=== PATIENT | female | born 1940 | race Caucasian/White ===

== ENCOUNTER 2019-10-30 11:57 | Day surgery (SDC) | payer MEDICARE, OTHER ==
--- NOTE | 2019-10-30 15:30 | MRI ---
EXAM: MRI lumbar spine without contrast HISTORY: Lumbar radiculopathy COMPARISON: None TECHNIQUE: Multiple planar multisequence MR images were obtained of the lumbar spine without contrast . FINDINGS: The vertebral bodies and intervertebral discs demonstrate normal height and alignment without fractur e or subluxation. Generalized disc desiccation is seen. The prevertebral and paraspinal soft tissues are unremarkable. No marrow signal abnormality is present. The conus medullaris terminates normally at L1. T12/L1: No significant posterior bulge or protrusion. Mild bilateral posterior facet arthrosis. No central canal stenosis. No neural foraminal stenosis L1/2: No significant posterior bulge or protrusion. Mild bilateral posterior facet arthrosis. No ce ntral canal stenosis. No neural foraminal stenosis L2/3: A moderate disc osteophyte complex is seen. Moderate bilateral posterior facet arthrosis. Mil d central canal stenosis. Moderate bilateral neural foraminal stenosis L3/4: A moderate disc osteophyte complex is seen. Moderate to severe bilateral posterior facet arthr osis. Moderate central canal stenosis. Moderate bilateral neural foraminal stenosis L4/5: A moderate discussed by complex is seen. Moderate to severe posterior facet arthrosis. Modera te central canal stenosis. Moderate bilateral neural foraminal stenosis L5/S1: A moderate disc osteophyte complex is seen. Moderate bilateral posterior facet arthrosis. No central canal stenosis. Moderate bilateral neural foraminal stenosis IMPRESSION: Degenerative changes of the lumbar spine as above.
== END 2019-10-30 15:50 | disposition home or self-care (01) ==
LOC: SDC/OP 11:57
PROVIDERS: ATTEND Physician Assistant Medical
DX: M54.16 Radiculopathy, lumbar region (principal); M48.061 Spinal stenosis, lumbar region without neurogenic claudication; F17.210 Nicotine dependence, cigarettes, uncomplicated; E03.9 Hypothyroidism, unspecified; Z79.82 Long term (current) use of aspirin; Z79.84 Long term (current) use of oral hypoglycemic drugs; Z79.899 Other long term (current) drug therapy; Z88.0 Allergy status to penicillin
CPT/HCPCS: 72148

== ENCOUNTER 2020-06-09 05:37 | Outpatient (CLI) | payer MEDICARE, OTHER | END 2020-06-09 05:38 | disposition home or self-care (01) | LOC: LABBT 05:37 | PROVIDERS: ATTEND Orthopaedic Surgery | DX: Z01.810 Encounter for preprocedural cardiovascular examination (principal); M16.11 Unilateral primary osteoarthritis, right hip | CPT/HCPCS: 93005; 93010 ==

== ENCOUNTER 2020-06-13 05:33 | Inpatient (IN) | payer MEDICARE ==
[2020-06-07 10:24] VITALS: BMI 33.3
--- NOTE | 2020-06-09 12:52 | HP ---
HISTORY OF PRESENT ILLNESS: The patient is a 79-year-old female with one year history of progressive right hip pain without injury. She has right hip pain radiating into her thigh, which has progressed despite restriction of activities and use of a walker. She has also had back pain. She has been seen by Dr. Seymour and given injections in her back and hip. Injections in her back did not give her much relief, but she did have excellent relief from injection in her hip for approximately 1 month. She was seen by Dr. Lundberg, who did not feel that she had operative back problem and thought her problem was from her hip and was referred to me. She has had progressive problems by restriction of activities and the pain is now interfering with day-to-day activities including walking, getting dressed, and sleeping. PAST MEDICAL HISTORY: The patient has a history of hypertension, diabetes, thyroid replacement, chronic pain. CURRENT MEDICATIONS: Include: 1. Lyrica. 2. Potassium. 3. Simvastatin. 4. Low-dose aspirin. 5. Metformin. 6. Amlodipine. 7. Losartan. 8. Multivitamins. 9. Ibuprofen. 10. Levothyroxine. 11. Lasix. ALLERGIC: To penicillin, which causes a rash. FAMILY HISTORY: Otherwise, unremarkable. SOCIAL HISTORY: Otherwise, unremarkable. REVIEW OF SYSTEMS: Otherwise, unremarkable. PHYSICAL EXAMINATION: GENERAL: Reveals a healthy elderly female. HEENT: Unremarkable. NECK: Supple. CHEST: Clear. HEART: Regular rate and rhythm. ABDOMEN: Soft, nontender. PELVIC: Deferred. RECTAL: Deferred. BREAST: Deferred. EXTREMITIES: Pertinent findings compared to the right hip. Her leg lengths are equal. There is tenderness over the greater trochanter and anterior right hip. There is a right antalgic gait with a walker. There is decreased range of motion of right hip and groin pain with internal rotation. There is good capillary refill. I could not palpate distal pulses. NEUROLOGIC: Otherwise intact. DIAGNOSTIC STUDIES: X-rays of the right hip reveal severe DJD with minimal joint space remaining and vascular calcifications. MRI scan of the lumbar spine reveals degenerative changes and moderate foraminal stenosis, but no major nerve root compression. IMPRESSION: 1. Degenerative arthritis, right hip. 2. Hypertension. 3. Type 2 diabetes. 4. Degenerative arthritis, lumbar spine. PLAN: The patient has been seen in preoperative surgery by Dr. López. I think she is a candidate for right total hip replacement. The nature of the surgery, length of recovery, and potential complications such as infection, loss of motion, incomplete relief, neurovascular injury, thromboembolic phenomena, leg length discrepancy, possible transfusion, need for revision have been discussed in detail. Job ID: [id number]
[2020-06-09 14:12] LABS: #Eosinphils 0.1 thou/uL (0.0-0.7); #Lymphocytes 2.6 thou/uL (1.20-3.40); #Monocytes 0.8 thou/uL (0.11-0.59); #Neutrophils 4.4 thou/uL (1.40-6.50); %Basophils 0.5 % (0.0-1.0); %Eosinophils 1.6 % (0.0-10.0); %Lymphocytes 32.7 % (21.0-51.0); %Neutrophils 55.1 % (42.0-75.0); Hemoglobin 13.6 g/dL (12.0-16.0); Mean Corpuscular HGB CONC 32.6 g/dL (32.0-36.0); Mean Corpuscular Hemoglobin 30.5 pg (27.0-31.0); Mean Corpuscular Volume 93.6 fL (78.0-98.0); Mean Platelet Volume 8.1 fL (7.4-10.4); Platelet Count 286 thou/uL (130-400); RBC Distribution Width 12.7 % (11.5-14.5); Red Blood Cell (RBC) Count 4.47 mill/uL (4.20-5.40)
[2020-06-09 14:16] LABS: Prothrombin Time 12.7 sec (12.0-14.7)
[2020-06-09 14:24] LABS: Bacteria/HPF None Seen HPF (None Seen); Bilirubin Negative (Negative); Blood, Urine Negative (Negative); Clarity Clear (Clear); Glucose, Urine (Dipstick) Normal (Negative); Ketone, Urine Negative (Negative); Leukocyte Negative Leu/uL (Negative); Nitrite Negative (Negative); Protein, Urine (Dipstick) 10 mg/dL (Neg-Trace); RBC/HPF 0-3 HPF (0-3); Specific Gravity, Urine 1.015 (1.002-1.036); Squamous Epithelial 0-3 HPF (0-3); Urobilinogen Normal mg/dL (Less than 2); WBC/HPF 0-3 HPF (0-3)
[2020-06-09 14:28] LABS: Anion Gap 12 mmol/L (10-20); BUN (Urea Nitrogen) 12 mg/dL (9.8-20.1); Calc. Creatinine Clearance 0 mL/min (70-130); Calcium 9.5 mg/dL (7.8-10.44); Carbon Dioxide 29 mmol/L (23-31); Chloride 100 mmol/L (98-107); Estimated GFR-MDRD 70; Glucose 120 mg/dL (83-110); Potassium 4.1 mmol/L (3.5-5.1); Sodium 137 mmol/L (136-145)
[2020-06-10 12:47] LABS: SARS-CoV-2 MS2 Positive; SARS-CoV-2 N Gene Negative; SARS-CoV-2 S Gene Negative; SARS-CoV-2 orf1ab Negative
[2020-06-13] MEDS ORDERED: Vancomycin 1.5 GRAM/300 ML BAG ONE (06:01)
[2020-06-13] MEDS ORDERED: Fentanyl 100 MCG/2 ML VIAL ONE ×2 (06:01→06:37)
[2020-06-13] MEDS ORDERED: Sodium Chloride 0.9% 100 ML ONE (06:01)
[2020-06-13] MEDS ORDERED: Levofloxacin 500 mg/D5W 100 ml Premix Bag ONE (06:01)
[2020-06-13] MEDS ORDERED: Tranexamic Acid 1,000 MG/10 ML VIAL ONE ×2 (06:01→09:11)
[2020-06-13] MEDS ORDERED: Midazolam HCl 2 mg/2 ml Vial ONE (06:37)
[2020-06-13] MEDS ORDERED: Acetaminophen 500 MG TAB PO PRN (07:50)
[2020-06-13] MEDS ORDERED: traMADol HCl 50 MG TAB PO PRN ×3 (08:00→10:54)
[2020-06-13] MEDS ORDERED: HYDROcodone/Acetaminophen 5/325 mg Tablet PO PRN ×2 (08:00)
[2020-06-13] MEDS ORDERED: Promethazine HCl 25 MG/ML VIAL IM PRN (08:00)
[2020-06-13] MEDS ORDERED: Naloxone HCl 0.4 mg/ml Vial IVP PRN (08:00)
[2020-06-13] MEDS ORDERED: diphenhydrAMINE 25 MG CAP PO PRN ×2 (08:00→10:54)
[2020-06-13] MEDS ORDERED: diphenhydrAMINE 50 MG/ML VIAL IM PRN (08:00)
[2020-06-13] MEDS ORDERED: Naloxone HCl 0.4 mg/ml Vial IV PRN (08:00)
[2020-06-13] MEDS ORDERED: Hydrocerin (Eucerin) Cream 120 gm Jar TOP PRN (08:00)
[2020-06-13] MEDS ORDERED: diphenhydrAMINE 50 MG/ML VIAL IVP PRN (08:00)
[2020-06-13] MEDS ORDERED: Ondansetron PF 4 MG/2 ML Vial IVP PRN ×2 (08:00→10:54)
[2020-06-13] MEDS ORDERED: Promethazine HCl 25 MG SUPP PR PRN (08:00)
[2020-06-13] MEDS ORDERED: Zolpidem Tartrate 5 MG TAB PO PRN ×2 (08:00→10:54)
[2020-06-13] MEDS ORDERED: Bupivacaine/Epinephrine 0.25% 30 ML VIAL ONE (08:34)
[2020-06-13] MEDS ORDERED: Tranexamic Acid 1,000 MG in Sodium Chloride 0.9% 100 ML IVPB SCH ×2 (09:15→10:54)
--- NOTE | 2020-06-13 09:44 | OP ---
DATE OF PROCEDURE: 06/13/2020 PROJECTION CAMERA OPERATOR: Diana Whalen PA-C ANESTHESIA: General plus epidural. PREOPERATIVE DIAGNOSIS: Degenerative arthritis, right hip. POSTOPERATIVE DIAGNOSIS: Degenerative arthritis, right hip. PROCEDURE PERFORMED: Right total hip replacement with uncemented Misael Trident II Tritanium acetabular component 54 mm with X3 polyethylene insert and uncemented [place] Accolade II femoral stem size 3, 132-degree neck angle with 36 mm standard neck length metal head. DESCRIPTION OF PROCEDURE: After satisfactory anesthesia was induced in supine position, sequential compression device was placed on the nonoperative leg throughout the procedure. The patient was placed in lateral decubitus position and this position was held with hip positioning device. The patient's right hip was then prepped and draped in a routine manner. The hip was approached through a lateral curvilinear incision, centered over the greater trochanter, carried down through the subcutaneous tissues, and bleeding points were controlled with Bovie cautery. IT band and gluteal fascia were split in line with skin incision. A direct lateral approach to the hip joint was accomplished by dividing the anterior third of the gluteus medius and minimus tendons with a Bovie cautery, reflecting this is a single flap anteriorly and medially along with the vastus lateralis. Anterior capsulectomy was performed. The hip was dislocated anteriorly. There was marked degenerative arthritis of the hip with large areas of exposed bone. The femoral neck was osteotomized with an oscillating saw using a trial prosthesis as a guide. The acetabulum was exposed and cleaned of all soft tissue and debris and reamed in sequence by 54 mm down to bleeding subchondral bone. It was felt that a 54 mm Trident Tritanium outer shell could be placed in a press-fit fashion. The permanent component was then hammered in position. There was good fit and stability of the component, and the permanent X3 polyethylene liner was inserted. The femur was exposed and opened with a box osteotome and then rasped in sequence to accept #3 Accolade II femoral rasp. The 132-degree angle trunnion was placed on the rasp and trial reduction with a 36 mm standard neck length head gave appropriate size, fit, and stability and maintenance of leg length. The hip was again dislocated anteriorly, and the trial components were removed. The permanent #3 Accolade II femoral stem was then hammered in position. There was again good fit and stability of the component. The permanent 36 mm metal head standard neck length was placed on the trunnion. The hip again reduced and found to be stable. The hip was copiously irrigated with pulsatile lavage. The abductors were repaired with interrupted #2 Vicryl. IT band and gluteal fascia were closed with interrupted #2 Vicryl and a running #2 Quill. Subcutaneous tissues were closed with running 0 Quill suture, and the skin was closed with a running subcuticular 3-0 Monoderm and SurgiSeal skin adhesive. Sterile dressing was applied. The patient turned to supine position, and a pillow placed in her legs. Sequential compression device was applied to the operative leg, and she was awakened and taken to the recovery room in stable condition. There were no apparent intraoperative complications. The estimated blood loss was 250 mL. Job ID: [id number]
[2020-06-13] MEDS ORDERED: HYDROcodone/Acetaminophen 10/325 mg Tablet PO PRN ×2 (10:54)
[2020-06-13] MEDS ORDERED: Amlodipine 10 MG TAB PO SCH (10:54)
[2020-06-13] MEDS ORDERED: Acetaminophen 325 MG TAB PO PRN (10:54)
[2020-06-13] MEDS ORDERED: Aspirin 81 mg Enteric Coated Tablet PO SCH ×2 (10:54→11:00)
[2020-06-13] MEDS ORDERED: Promethazine HCl 25 MG/ML VIAL SLOW IVP PRN (10:54)
[2020-06-13] MEDS ORDERED: Ferrous Gluconate 324 MG TAB PO SCH ×2 (10:54→11:15)
[2020-06-13] MEDS ORDERED: Fentanyl 100 MCG/2 ML VIAL SLOW IVP PRN (10:54)
[2020-06-13] MEDS ORDERED: Amlodipine 5 MG TAB PO SCH (11:00)
[2020-06-13] MEDS ORDERED: Multivitamin W/ Minerals 1 TAB PO SCH (11:15)
[2020-06-13] MEDS ORDERED: metFORMIN 500 MG TAB PO SCH (11:15)
[2020-06-13] MEDS ORDERED: Senokot S 8.6-50 MG TAB PO SCH (11:30)
[2020-06-13] MEDS ORDERED: Potassium Chloride 20 MEQ TAB PO SCH (11:30)
--- NOTE | 2020-06-13 11:43 | RAD ---
RIGHT HIP 2 VIEWS: Date: 06/13/2020 HISTORY: Postop right hip arthroplasty. FINDINGS/IMPRESSION: Comparison made with exam of 09/21/2019. Interval recent postop changes of right hip arthroplasty are seen in good position and alignment. Sof t tissue air is present. Calcified uterine fibroid is again seen. POS: [facility]
[2020-06-13] MEDS ORDERED: Dexamethasone 20 MG/5 ML VIAL ONE (12:21)
[2020-06-13] MEDS ORDERED: Ondansetron PF 4 MG/2 ML Vial ONE (12:21)
[2020-06-13] MEDS ORDERED: PHENYLEPHRINE-NS 100 MCG/ML 10 ML SYRINGE ONE (12:21)
[2020-06-13] MEDS ORDERED: Lidocaine 1.5% w/Epi 1:200K 30 ML VIAL (Epid Use) ONE (12:21)
[2020-06-13] MEDS ORDERED: Rocuronium Bromide 10 MG/ML (10ML VIAL) ONE (12:21)
[2020-06-13] MEDS ORDERED: Ketorolac Tromethamine 30 MG/ML VIAL ONE (12:21)
[2020-06-13] MEDS ORDERED: PROPOFOL 200 MG/20 ML VIAL ONE (12:21)
[2020-06-13] MEDS ORDERED: Glycopyrrolate 0.2 MG/ML 5 ML SYRINGE ONE (12:21)
[2020-06-13] MEDS: Ketorolac Tromethamine 30 MG/ML VIAL IVP SCH ×3 (14:17→23:20)
[2020-06-13] MEDS: Sodium Chloride 0.9% 1,000 ML IV SCH ×2 (15:13→20:06)
[2020-06-13] MEDS ORDERED: Dextrose 5% in Water 1,000 ML IV PRN (15:21)
[2020-06-13] MEDS ORDERED: Dextrose 50% Abboject 50 ML SYRINGE SLOW IVP PRN (15:21)
--- NOTE | 2020-06-13 15:24 | PDOC.HOSPP ---
- Subjective Encounter Date: 06/13/20 Encounter Time: 15:22 Subjective: Patient seen and examined. No new complaints. Patient is admitted for right hip arthroplasty for degenerative joint disease of hip Patient has no new complaints at this point - Objective Vital Signs & Weight: Vital Signs (12 hours) Temp Pulse Resp BP Pulse Ox 06/13/20 10:54 97.1 F L 54 L 16 116/54 L 98 Weight Weight 199 lb 15.348 oz Result Diagrams: 06/09/20 09:50 06/09/20 09:50 Radiology Reviewed by me: Yes Hospitalist ROS - Review of Systems Eyes: denies: pain, vision change, conjunctivae inflammation, eyelid inflammation, redness, other ENT: denies: ear pain, ear discharge, nose pain, nose discharge, nose congestion , mouth pain, mouth swelling, throat pain, throat swelling, other Respiratory: denies: cough, dry, shortness of breath, hemoptysis, SOB with excertion, pleuritic pain, sputum, wheezing, other Cardiovascular: denies: chest pain, palpitations, orthopnea, paroxysmal noc. dyspnea, edema, light headedness, other Gastrointestinal: denies: nausea, vomiting, abdominal pain, diarrhea, constipation, melena, hematochezia, other Genitourinary: denies: dysuria, frequency, incontinence, hematuria, retention, other Musculoskeletal: denies: neck pain, shoulder pain, arm pain, back pain, hand pain, leg pain, foot pain, other - Medication Medications: Active Medications Generic Name Dose Route Start Last Admin Trade Name Freq PRN Reason Stop Dose Admin Sodium Chloride 1,000 mls @ 100 mls/hr 06/13/20 10:54 06/13/20 15:13 Normal Saline 0.9% IV Not Given .Q10H [facility] Ketorolac Tromethamine 15 mg 06/13/20 12:00 06/13/20 14:17 Toradol IVP 06/15/20 12:01 15 mg Q6HR JAYLA Administration - Exam General Appearance: NAD, awake alert Eye: PERRL, anicteric sclera ENT: normocephalic atraumatic, no oropharyngeal lesions Neck: supple, symmetric, no JVD, no thyromegaly Heart: RRR, no murmur, no gallops, no rubs Respiratory: CTAB, no wheezes, no rales, no ronchi Gastrointestinal: soft, non-tender, non-distended, normal bowel sounds Gastrointestinal - other findings: Johns catheter in place, epidural in place Extremities: no cyanosis, no clubbing, no edema Skin: normal turgor, no lesions Neurological: no focal deficits Musculoskeletal: normal tone, normal strength Psychiatric: normal affect, normal behavior Hosp A/P - Plan old records reviewed/req, PT/OT, DVT proph w/SCDs Assessment Degenerative arthritis of right hip status post right total hip replacement Diabetes type 2 Hypertension Dyslipidemia Hypothyroidism Obesity with BMI 30-40 Plan Home medication has been reconciled Diabetes hyperglycemia protocol order has been initiated Medication reviewed and continue provide symptomatic care PT OT as per orthopedic condition Pain control Continue epidural as per anesthesia We will consider Johns removal as early as possible once epidural is out DVT prophylaxis SCD along with aspirin 81 mg p.o. twice daily as per protocol GI prophylaxis not needed CODE STATUS patient is full code Disposition plan based on clinical course.
[2020-06-13] MEDS: HumaLOG 300 UNITS/3 ML VIAL SC PRN ×2 (17:23→20:32)
[2020-06-13] MEDS ORDERED: Vancomycin 1.5 GRAM/300 ML BAG 1.5 GM in Premix Bag 1 BAG IVPB SCH (18:00)
[2020-06-13] MEDS ORDERED: Vancomycin HCl 1.5 GM in Sodium Chloride 0.9% 250 ML 300 ML IVPB SCH (18:00)
[2020-06-13] MEDS: Atorvastatin Calcium 10 MG TAB PO SCH (20:08)
[2020-06-13] MEDS: Gabapentin 300 MG CAP PO SCH (20:08)
[2020-06-13] MEDS: Aspirin 81 mg Enteric Coated Tablet PO SCH (20:08)
[2020-06-13] MEDS: metFORMIN 500 MG TAB PO SCH (20:09)
[2020-06-13] MEDS: Senokot S 8.6-50 MG TAB PO SCH (20:21)
[2020-06-13] MEDS: Ferrous Gluconate 324 MG TAB PO SCH (20:21)
[2020-06-14] MEDS: fentaNYL Citrate/PF 500 MCG, Bupivacaine 10 ML in Sodium Chloride 0.9% 80 ML EPIDURAL SCH ×2 (01:59→19:32)
[2020-06-14] MEDS: HumaLOG 300 UNITS/3 ML VIAL SC PRN ×2 (05:35→21:06)
[2020-06-14] MEDS: Levothyroxine Sodium 100 MCG TAB PO SCH (05:36)
[2020-06-14] MEDS: Ketorolac Tromethamine 30 MG/ML VIAL IVP SCH ×4 (05:36→23:44)
[2020-06-14 05:52] LABS: Hemoglobin 12.1 g/dL (12.0-16.0); Mean Corpuscular HGB CONC 32.5 g/dL (32.0-36.0); Mean Corpuscular Hemoglobin 29.9 pg (27.0-31.0); Mean Corpuscular Volume 91.9 fL (78.0-98.0); Mean Platelet Volume 7.8 fL (7.4-10.4); Platelet Count 279 thou/uL (130-400); RBC Distribution Width 12.5 % (11.5-14.5); Red Blood Cell (RBC) Count 4.06 mill/uL (4.20-5.40); White Blood Cell (WBC) Count 15.8 thou/uL (4.8-10.8)
[2020-06-14] MEDS: Sodium Chloride 0.9% 1,000 ML IV SCH ×2 (06:24→19:14)
[2020-06-14] MEDS: Amlodipine 5 MG TAB PO SCH (08:07)
[2020-06-14] MEDS ORDERED: Sodium Chloride 0.65% Nasal 44 ML BOT EA NARE PRN (08:07)
[2020-06-14] MEDS: Potassium Chloride 20 MEQ TAB PO SCH (08:07)
[2020-06-14] MEDS ORDERED: Labetalol HCl 100 MG/20 ML VIAL SLOW IVP PRN (08:07)
[2020-06-14] MEDS ORDERED: Ondansetron ODT 4 MG TAB SL PRN (08:07)
[2020-06-14] MEDS ORDERED: Loperamide HCl 2 MG CAP PO PRN (08:07)
[2020-06-14] MEDS ORDERED: hydrALAZINE 20 MG/ML VIAL SLOW IVP PRN (08:07)
[2020-06-14] MEDS ORDERED: Diabetic Tussin 200 MG/10 ML UDCUP PO PRN (08:07)
[2020-06-14] MEDS: Senokot S 8.6-50 MG TAB PO SCH ×2 (08:07→21:06)
[2020-06-14] MEDS ORDERED: Cepastat Lozenges 1 LOZ PO PRN (08:07)
[2020-06-14] MEDS: Multivitamin W/ Minerals 1 TAB PO SCH (08:08)
[2020-06-14] MEDS: Aspirin 81 mg Enteric Coated Tablet PO SCH ×2 (08:08→21:06)
[2020-06-14] MEDS: metFORMIN 500 MG TAB PO SCH ×2 (08:08→21:05)
[2020-06-14] MEDS: Ferrous Gluconate 324 MG TAB PO SCH ×2 (08:09→21:06)
--- NOTE | 2020-06-14 08:40 | PRG ---
DATE OF SERVICE: 06/14/2020 SUBJECTIVE: Rashard is a 79-year-old female, postop day 1 from a right total hip arthroplasty. She is doing relatively well. She is comfortable and sleeping this morning and arousable. She has no complaints. OBJECTIVE: VITAL SIGNS: Temperature 97.8, pulse 80, respiratory rate 16 and nonlabored, and blood pressure is 170/69. GENERAL: She is alert, responsive and appropriate with examiner, conversive and pleasant. EXTREMITIES: Her incision is clean. She is neurovascularly intact in the right lower extremity. There is no strike through or bleeding. No leg length discrepancies or shortening or malrotation identified. LABORATORY DATA: Hemoglobin and hematocrit, 12.1 and 37.3. IMPRESSION: A 79-year-old female, postop day 1, right total hip arthroplasty, doing very well. PLAN: Continue current care. Probable discharge home tomorrow. We will continue to monitor. Job ID: [id number]
--- NOTE | 2020-06-14 12:36 | PDOC.HOSPP ---
- Subjective Encounter Date: 06/14/20 Encounter Time: 10:15 Subjective: Patient seen and examined. No new complaints. No overnight events - Objective Vital Signs & Weight: Vital Signs (12 hours) Temp Pulse Resp BP BP Pulse Ox 06/14/20 12:07 98.2 F 67 14 145/64 H 95 06/14/20 08:19 97.2 F L 68 14 119/66 95 06/14/20 08:07 67 119/66 06/14/20 08:00 95 06/14/20 03:40 97.8 F 80 16 170/69 H 94 L Weight Admit Weight 199 lb 15.344 oz Weight 199 lb 15.348 oz I&O: 06/13/20 06/14/20 06/15/20 06:59 06:59 06:59 Intake Total 355 Output Total 475 Balance -120 Result Diagrams: 06/14/20 05:34 06/09/20 09:50 Additional Labs: Accuchecks 06/14/20 06/13/20 06/13/20 05:38 20:29 17:21 POC Glucose 153 H 239 H 285 H Hospitalist ROS - Review of Systems Constitutional: denies: fever, chills, sweats, weakness, malaise, other ENT: denies: ear pain, ear discharge, nose pain, nose discharge, nose congestion , mouth pain, mouth swelling, throat pain, throat swelling, other Respiratory: denies: cough, dry, shortness of breath, hemoptysis, SOB with excertion, pleuritic pain, sputum, wheezing, other Cardiovascular: denies: chest pain, palpitations, orthopnea, paroxysmal noc. dyspnea, edema, light headedness, other Gastrointestinal: denies: nausea, vomiting, abdominal pain, diarrhea, constipation, melena, hematochezia, other Genitourinary: denies: dysuria, frequency, incontinence, hematuria, retention, other Musculoskeletal: denies: neck pain, shoulder pain, arm pain, back pain, hand pain, leg pain, foot pain, other - Medication Medications: Active Medications Generic Name Dose Route Start Last Admin Trade Name Freq PRN Reason Stop Dose Admin Amlodipine Besylate 5 mg 06/14/20 09:00 06/14/20 08:07 Norvasc PO 5 mg DAILY JAYLA Administration Aspirin 81 mg 06/13/20 21:00 06/14/20 08:08 Ecotrin PO 81 mg BID JAYLA Administration Atorvastatin Calcium 10 mg 06/13/20 21:00 06/13/20 20:08 Lipitor PO 10 mg HS JAYLA Administration Ferrous Gluconate 324 mg 06/13/20 21:00 06/14/20 08:09 Fergon PO 324 mg BID JAYLA Administration Gabapentin 300 mg 06/13/20 21:00 06/13/20 20:08 Neurontin PO 300 mg HS JAYLA Administration HCTZ/Losartan Potassium 1 tab 06/14/20 09:00 06/14/20 08:07 Hyzaar 50/12.5 PO 1 tab DAILY JAYLA Administration Fentanyl Citrate 500 mcg/ 100 mls @ 6 mls/hr 06/13/20 08:00 06/14/20 01:59 Bupivacaine HCl 10 ml/ Sodium EPIDURAL 100 mls Chloride INF JAYLA Administration As Directed Sodium Chloride 1,000 mls @ 100 mls/hr 06/13/20 10:54 06/14/20 06:24 Normal Saline 0.9% IV Not Given .Q10H JAYLA Insulin Human Lispro 0 units 06/13/20 15:21 06/14/20 05:35 Humalog SC 2 unit .MODERATE SLIDING SC PRN Administration Moderate Correctional Scale Insulin Human Lispro 0 units 06/13/20 15:21 06/13/20 20:32 Humalog SC 2 unit .BEDTIME SLIDING SC PRN Administration Bedtime Correctional Scale Iron/Minerals/Multivitamins 1 tab 06/14/20 09:00 06/14/20 08:08 Theragran M PO 1 tab DAILY JAYLA Administration Ketorolac Tromethamine 15 mg 06/13/20 12:00 06/14/20 05:36 Toradol IVP 06/15/20 12:01 15 mg Q6HR JAYLA Administration Levothyroxine Sodium 100 mcg 06/14/20 06:00 06/14/20 05:36 Synthroid PO 100 mcg 0600 JAYLA Administration Metformin HCl 250 mg 06/13/20 21:00 06/14/20 08:08 Glucophage PO 250 mg BID JAYLA Administration Potassium Chloride 20 meq 06/14/20 09:00 06/14/20 08:07 K-Dur PO 20 meq DAILY JAYLA Administration Senna/Docusate Sodium 2 tab 06/13/20 21:00 06/14/20 08:07 Senokot S PO 2 tab BID JAYLA Administration - Exam General Appearance: NAD, awake alert Eye: PERRL, anicteric sclera ENT: normocephalic atraumatic, no oropharyngeal lesions Neck: supple, symmetric, no JVD Heart: RRR, no murmur, no gallops, no rubs Respiratory: CTAB, no wheezes, no rales, no ronchi Gastrointestinal: soft, non-tender, non-distended, normal bowel sounds Extremities: no cyanosis, no clubbing Skin: normal turgor, no lesions Neurological: no focal deficits Musculoskeletal: normal tone, normal strength Psychiatric: normal affect, normal behavior Hosp A/P - Plan old records reviewed/req, PT/OT Assessment Degenerative arthritis of right hip status post right total hip replacement Diabetes type 2 Hypertension Dyslipidemia Hypothyroidism Obesity with BMI 30-40 Plan Continue PT OT Pain is controlled Epidural as per anesthesia Medically stable.
[2020-06-14] MEDS: Calcium Carbonate 500 MG ChewTAB PO PRN (17:38)
[2020-06-14] MEDS ORDERED: Furosemide 20 MG/2 ML VIAL SLOW IVP SCH (17:45)
[2020-06-14] MEDS: Gabapentin 300 MG CAP PO SCH (21:06)
[2020-06-14] MEDS: Atorvastatin Calcium 10 MG TAB PO SCH (21:06)
[2020-06-15] MEDS: Sodium Chloride 0.9% 1,000 ML IV SCH ×2 (01:24→11:34)
[2020-06-15] MEDS: Levothyroxine Sodium 100 MCG TAB PO SCH (05:45)
[2020-06-15] MEDS: Ketorolac Tromethamine 30 MG/ML VIAL IVP SCH ×2 (05:45→11:09)
[2020-06-15] MEDS: Potassium Chloride 20 MEQ TAB PO SCH (09:01)
[2020-06-15] MEDS: Aspirin 81 mg Enteric Coated Tablet PO SCH (09:01)
[2020-06-15] MEDS: metFORMIN 500 MG TAB PO SCH (09:01)
[2020-06-15] MEDS: Multivitamin W/ Minerals 1 TAB PO SCH (09:02)
[2020-06-15] MEDS: Ferrous Gluconate 324 MG TAB PO SCH (09:02)
[2020-06-15] MEDS: Amlodipine 5 MG TAB PO SCH (09:02)
[2020-06-15] MEDS: Senokot S 8.6-50 MG TAB PO SCH (09:02)
[2020-06-15] MEDS: Calcium Carbonate 500 MG ChewTAB PO PRN (11:09)
[2020-06-15 11:10] VITALS: BP 156/87; TEMP 98
[2020-06-15] MEDS: HumaLOG 300 UNITS/3 ML VIAL SC PRN (11:13)
--- NOTE | 2020-06-15 12:02 | PDOC.HOSPP ---
- Subjective Encounter Date: 06/15/20 Encounter Time: 11:00 Subjective: Patient seen and examined for med mngt. Some indigestion. No N/V/Abd pain. Pain controlled. No CP or SOB. No new complaints. No overnight events - Objective Vital Signs & Weight: Vital Signs (12 hours) Temp Pulse Resp BP BP Pulse Ox 06/15/20 11:04 98 F 61 16 156/87 H 93 L 06/15/20 07:59 98.2 F 71 18 117/65 93 L 06/15/20 03:01 99.1 F 66 16 128/71 95 06/15/20 00:06 61 15 94 L Weight Admit Weight 199 lb 15.344 oz Weight 199 lb 15.348 oz I&O: 06/14/20 06/15/20 06/16/20 06:59 06:59 06:59 Intake Total 355 480 Output Total 475 800 Balance -120 -320 Result Diagrams: 06/14/20 05:34 06/09/20 09:50 Additional Labs: Accuchecks 06/15/20 06/15/20 06/14/20 11:10 05:18 20:52 POC Glucose 166 H 144 H 203 H 06/14/20 14:56 POC Glucose 166 H Hospitalist ROS - Review of Systems Respiratory: denies: cough, dry, shortness of breath, hemoptysis, SOB with excertion, pleuritic pain, sputum, wheezing, other Cardiovascular: denies: chest pain, palpitations, orthopnea, paroxysmal noc. dyspnea, edema, light headedness, other - Medication Medications: Active Medications Generic Name Dose Route Start Last Admin Trade Name Freq PRN Reason Stop Dose Admin Albuterol/Ipratropium 3 ml 06/14/20 17:40 06/15/20 00:06 Duoneb NEB 3 ml Q6H PRN Administration SOB &/or Wheezing Amlodipine Besylate 5 mg 06/14/20 09:00 06/15/20 09:02 Norvasc PO 5 mg DAILY JAYLA Administration Aspirin 81 mg 06/13/20 21:00 06/15/20 09:01 Ecotrin PO 81 mg BID JAYLA Administration Atorvastatin Calcium 10 mg 06/13/20 21:00 06/14/20 21:06 Lipitor PO 10 mg HS JAYLA Administration Calcium Carbonate 1,000 mg 06/14/20 08:07 06/15/20 11:09 Tums PO 1,000 mg Q4H PRN Administration Heartburn or Indigestion Ferrous Gluconate 324 mg 06/13/20 21:00 06/15/20 09:02 Fergon PO 324 mg BID JAYLA Administration Gabapentin 300 mg 06/13/20 21:00 06/14/20 21:06 Neurontin PO 300 mg HS JAYLA Administration HCTZ/Losartan Potassium 1 tab 06/14/20 09:00 06/15/20 09:02 Hyzaar 50/12.5 PO 1 tab DAILY JAYLA Administration Fentanyl Citrate 500 mcg/ 100 mls @ 6 mls/hr 06/13/20 08:00 06/14/20 19:32 Bupivacaine HCl 10 ml/ Sodium EPIDURAL 100 mls Chloride INF JAYLA Administration As Directed Sodium Chloride 1,000 mls @ 100 mls/hr 06/13/20 10:54 06/15/20 11:34 Normal Saline 0.9% IV Not Given .Q10H JAYLA Insulin Human Lispro 0 units 06/13/20 15:21 06/15/20 11:13 Humalog SC 2 unit .MODERATE SLIDING SC PRN Administration Moderate Correctional Scale Insulin Human Lispro 0 units 06/13/20 15:21 06/14/20 21:06 Humalog SC 2 unit .BEDTIME SLIDING SC PRN Administration Bedtime Correctional Scale Iron/Minerals/Multivitamins 1 tab 06/14/20 09:00 06/15/20 09:02 Theragran M PO 1 tab DAILY JAYLA Administration Levothyroxine Sodium 100 mcg 06/14/20 06:00 06/15/20 05:45 Synthroid PO 100 mcg 0600 JAYLA Administration Metformin HCl 250 mg 06/13/20 21:00 06/15/20 09:01 Glucophage PO 250 mg BID JAYLA Administration Potassium Chloride 20 meq 06/14/20 09:00 06/15/20 09:01 K-Dur PO 20 meq DAILY JAYLA Administration Senna/Docusate Sodium 2 tab 06/13/20 21:00 06/15/20 09:02 Senokot S PO 2 tab BID JAYLA Administration - Exam General Appearance: NAD Heart: RRR, no gallops Respiratory: no wheezes, no ronchi Gastrointestinal: non-tender, non-distended, normal bowel sounds Extremities: no cyanosis Neurological: no new deficit Psychiatric: normal affect, A&O x 3 Hosp A/P - Plan DVT proph w/SCDs Degenerative arthritis of right hip status post right total hip replacement DM2 HTN Hypothyroidism Obesity with BMI 33 CKD 2 Plan Cont Amlodipine and other HTN meds Cont Metformin with sliding scale Cont Levothyroxine Continue PT OT Epidural for pain control
== END 2020-06-15 15:47 | disposition home or self-care (01) | DRG 470 ==
LOC: SDC 05:33 → SJJU 10:51
PROVIDERS: ADMIT Orthopaedic Surgery; ATTEND Orthopaedic Surgery
PROC: 0SR90JA Replacement of Right Hip Joint with Synthetic Substitute, Uncemented, Open Approach (ICD-10-PCS; principal; 2020-06-13)
DX: M16.11 Unilateral primary osteoarthritis, right hip (principal); Z11.59 Encounter for screening for other viral diseases; E78.5 Hyperlipidemia, unspecified; I12.9 Hypertensive chronic kidney disease with stage 1 through stage 4 chronic kidney disease, or unspecified chronic kidney disease; N18.2 Chronic kidney disease, stage 2 (mild); E11.22 Type 2 diabetes mellitus with diabetic chronic kidney disease; E66.9 Obesity, unspecified; E03.9 Hypothyroidism, unspecified; Z87.891 Personal history of nicotine dependence; G89.4 Chronic pain syndrome; M51.36 Other intervertebral disc degeneration, lumbar region; Z79.84 Long term (current) use of oral hypoglycemic drugs; Z79.899 Other long term (current) drug therapy; Z79.890 Hormone replacement therapy; Z88.0 Allergy status to penicillin; Z68.33 Body mass index [BMI] 33.0-33.9, adult
CPT/HCPCS: 36415; 36416; 80048; 81001; 85025; 85027; 85610; 86850; 86900; 86901; 87081; 87086; 87635; 94640; C1776; J1100; J1885; J1940; J1956; J2001; J2250; J2405; J2704; J3010; J3370; J3490; J7620; U0003

== ENCOUNTER 2021-08-16 12:20 | Outpatient (CLI) | payer MEDICARE | END 2021-08-16 12:21 | disposition home or self-care (01) | LOC: BICRAD 12:20 | PROVIDERS: ATTEND Family Medicine | DX: M25.552 Pain in left hip (principal); M16.12 Unilateral primary osteoarthritis, left hip; M25.752 Osteophyte, left hip; M25.852 Other specified joint disorders, left hip ==